=== PATIENT | female | born 1985 | race Caucasian/White ===

== ENCOUNTER 2022-11-05 05:18 | Day surgery (SDC) | payer BC ==
[2022-10-31 16:16] VITALS: BMI 26.2
[2022-11-05] MEDS ORDERED: ceFAZolin SODIUM 1 GM VIAL ONE (07:36)
[2022-11-05] MEDS ORDERED: LIDOCAINE HCL/PF 2% SDV 5ML VIAL ONE (07:36)
[2022-11-05] MEDS ORDERED: DEXAMETHASONE SOD PHOSPHATE 4 MG/1 ML VIAL ONE (07:36)
[2022-11-05] MEDS ORDERED: SODIUM CHLORIDE 0.9% P/F 10 ML VIAL IJ ONE (07:36)
[2022-11-05] MEDS ORDERED: MIDAZOLAM HCL 2 MG/2 ML SINGLE DOSE VIAL ONE (07:37)
[2022-11-05] MEDS ORDERED: PROPOFOL 40 ML ONE (07:37)
[2022-11-05] MEDS ORDERED: ROCURONIUM BROMIDE 50 MG/5 ML SYRINGE ONE ×2 (07:38→09:19)
[2022-11-05] MEDS ORDERED: ceFAZolin SODIUM 1 GM VIAL IVPB ONE (08:50)
[2022-11-05] MEDS ORDERED: BUPIVACAINE HCL/PF 0.5% (5MG/ML) 10 ML VIAL ONE (08:55)
[2022-11-05] MEDS ORDERED: BUPIVACAINE HCL/PF 0.5% (5MG/ML) 10 ML VIAL IJ ONE ×2 (09:10→10:50)
[2022-11-05] MEDS ORDERED: LIDOCAINE HCL 1%, 10 MG/ML (10ML VIAL) MDV ONE (11:14)
[2022-11-05] MEDS ORDERED: EPINEPHrine/PF 1 MG/1 ML (1:1,000) AMPULE ONE (11:16)
[2022-11-05] MEDS ORDERED: LIDOCAINE HCL 1%, 10 MG/ML (20ML VIAL) NR ONE (11:30)
[2022-11-05] MEDS ORDERED: EPINEPHrine 1:1,000 1,000 MCG/ML ML IVPB ONE (11:31)
[2022-11-05] MEDS ORDERED: ACETAMINOPHEN INJECTION 100 ML IVPB ONE (12:13)
[2022-11-05] MEDS ORDERED: oxyCODONE HCL 5 MG TABLET PO PRN (12:13)
[2022-11-05] MEDS ORDERED: ONDANSETRON 4 MG/2 ML VIAL IVPUSH PRN (12:13)
[2022-11-05] MEDS ORDERED: ACETAMINOPHEN 1000 MG/100 ML BAG IVPB ONE (12:14)
[2022-11-05] MEDS ORDERED: LACTATED RINGERS SOLUTION 1,000 ML IV SCH (12:15)
[2022-11-05 14:23] VITALS: RESP 18
[2022-11-05] MEDS ORDERED: oxyCODONE HCL 5 MG TABLET ONE (14:26)
[2022-11-05 16:25] VITALS: BP 108/76; PULSE 75; TEMP 97.8
== END 2022-11-05 16:55 | disposition home or self-care (01) ==
LOC: JASU-SURG 05:18
PROVIDERS: ATTEND Plastic Surgery
PROC: 0HRU0JZ Replacement of Left Breast with Synthetic Substitute, Open Approach (ICD-10-PCS; 2022-11-05)
PROC: 0HBU3ZZ Excision of Left Breast, Percutaneous Approach (ICD-10-PCS; 2022-11-05)
PROC: 0HRV0JZ Replacement of Bilateral Breast with Synthetic Substitute, Open Approach (ICD-10-PCS; 2022-11-05)
PROC: 0HQT0ZZ Repair Right Breast, Open Approach (ICD-10-PCS; principal; 2022-11-05 08:00)
DX: Z85.3 Personal history of malignant neoplasm of breast (principal); Z90.12 Acquired absence of left breast and nipple; N65.1 Disproportion of reconstructed breast
CPT/HCPCS: 15877; 19316; 19342; 19370; L8600; 81025; 88305-TC; 88342-TC; 94760; C1789